=== PATIENT | female | born 1985 | race Caucasian/White ===

== ENCOUNTER 2019-09-28 09:42 | Emergency (ER) | payer SELFPAY ==
--- NOTE | 2019-09-28 10:21 | ED.PDOC ---
History of Present Illness - General Chief Complaint: Fever Stated Complaint: fever, sore throat Time Seen by Provider: 09/28/19 09:54 Source: patient, RN notes reviewed, Vital Signs reviewed, EMS notes reviewed Exam Limitations: no limitations - History of Present Illness Initial Comments: This is a 34-year-old female with no significant past medical history presenting to the emergency department for 2 days of fever, nasal congestion, sore throat. She also reports mild cough that she states is related to nasal drainage. She denies any shortness of breath, vomiting, diarrhea. 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 She states she was running a fever up to 103 today while at work and was sent home from work. She took ibuprofen just prior to arrival.Patient states she gets similar illnesses yearly around this time for the past several years Allergies/Adverse Reactions: Allergies Phenytoin [From Dilantin] Allergy (Verified 09/28/19 11:37) Home Medications: Ambulatory Orders Benzocaine (Mouth-Throat) [Chloraseptic Warming Sore] 15 mg SL Q4H PRN #30 hallie 09/28/19 Fluticasone Prop 0.05% Nasal [Flonase Nasal [place]] 1 spray BNAS BID #1 bottle 09/28/19 Ibuprofen [Motrin] 600 mg PO Q6H PRN #20 tab 09/28/19 Review of Systems - Review of Systems Constitutional: States: chills, fever EENTM: States: ear pain, nose congestion, throat pain. Denies: throat swelling, mouth pain, mouth swelling Respiratory: States: cough. Denies: short of breath, wheezing Cardiology: Denies: edema, syncope Gastrointestinal/Abdominal: Denies: abdominal pain, diarrhea, nausea, vomiting Genitourinary: Denies: dysuria, hematuria Musculoskeletal: Denies: joint pain, muscle pain Skin: Denies: lesions, lumps, rash Neurological: Denies: headache, paresthesia Past Medical History (General) - Patient Medical History Hx Asthma: Yes Hx Hypertension: Yes Hx Diabetes: Yes - diet controlled Surgical History: no surgical history - Vaccination History Hx Tetanus, Diphtheria Vaccination: Yes Hx Influenza Vaccination: Yes Hx Pneumococcal Vaccination: No - Social History Hx Alcohol Use: Yes - Activities of Daily Living Hospice Agency (if applicable):: None - Female History Patient : No Family Medical History - Family History Mother Family History: No Known Physical Exam - Physical Exam General Appearance: Alert, Comfortable, No apparent distress, Obese Ears, Nose, Throat: hearing grossly normal, normal pharynx, other - Mild nasal congestion, no pharyngeal erythema or exudate. No peritonsillar abscess. TMs are normal bilaterally. Neck: non-tender, full range of motion, supple Respiratory: lungs clear, normal breath sounds, no respiratory distress, no accessory muscle use Cardiovascular/Chest: normal peripheral pulses, regular rate, rhythm, no edema, no gallop, no JVD Gastrointestinal/Abdominal: non tender, soft Back Exam: normal inspection, no CVA tenderness, no vertebral tenderness Extremity: non-tender, normal inspection Neurologic: no motor/sensory deficits, alert, normal mood/affect, oriented x 3 Skin Exam: normal color, warm/dry Progress - Results/Orders Results/Orders: EXAM DESCRIPTION: Chest,1 View CLINICAL HISTORY: fever, cough COMPARISON: None. IMPRESSION: Single AP portable upright view of the chest shows mild enlargement of the cardiac silhouette without pulmonary vascular congestion.. Lungs are normally aerated and clear. No obvious pleural effusion or pneumothorax is seen. Electronically signed by: Bennett Villafana MD 09/28/2019 10:39 AM CDT 09/28/19 10:04 RESPIRATORY PANEL 2 Negative for influenza, COVID 2, And parainfluenza Laboratory Results - last 24 hr 09/28/19 10:04 Group A Strep Rapid Positive H Departure - Departure Clinical Impression: Fever in adult, Strep throat, Exposure to COVID-19 virus Disposition: Discharge to Home or Self Care Condition: Good Departure Forms: ED Discharge - Pt. Copy, ED Discharge - Work Release, Patient Portal Self Enrollment Instructions: Strep Throat (DC), Coronavirus Disease 2019 (COVID-19) Referrals: Kristina Metzger NP [Primary Care Provider] - 1-5 Days Prescriptions: Benzocaine (Mouth-Throat) [Chloraseptic [place]arming Sore] 15 mg SL Q4H PRN #30 hallie PRN Reason: Throat Pain Fluticasone Prop 0.05% Nasal [Flonase Nasal [place]] 1 spray BNAS BID #1 bottle Ibuprofen [Motrin] 600 mg PO Q6H PRN #20 tab PRN Reason: Moderate To Severe Pain Home Medications: Ambulatory Orders Benzocaine (Mouth-Throat) [Chloraseptic [place] Sore] 15 mg SL Q4H PRN #30 hallie 09/28/19 Fluticasone Prop 0.05% Nasal [Flonase Nasal [place]] 1 spray BNAS BID #1 bottle 09/28/19 Ibuprofen [Motrin] 600 mg PO Q6H PRN #20 tab 09/28/19
--- NOTE | 2019-09-28 10:40 | RAD ---
EXAM DESCRIPTION: Chest,1 View CLINICAL HISTORY: fever, cough COMPARISON: None. IMPRESSION: Single AP portable upright view of the chest shows mild enlargement of the cardiac silhouette without pulmonary vascular congestion.. Lungs are normally aerated and clear. No obvious pleural effusion or pneumothorax is seen. Electronically signed by: Bennett Villafana MD 09/28/2019 10:39 AM CDT
[2019-09-28] MEDS ORDERED: PENICILLIN BENZATHINE 1.2 MU 1.2 MU/2 ML SYG IM ONE (10:53)
[2019-09-28] MEDS ORDERED: DEXAMETHASONE INJ 10 MG/ML VIAL ONE (11:07)
[2019-09-28 11:40] VITALS: TEMP 97.5; O2SAT 94
[2019-09-28 11:42] VITALS: BP 152/113
[2019-09-29] MEDS ORDERED: DEXAMETHASONE INJ 10 MG/ML VIAL PO ONE (10:54)
== END 2019-09-28 11:30 | disposition home or self-care (01) ==
LOC: ER 09:42
DX: J02.0 Streptococcal pharyngitis (principal); E11.9 Type 2 diabetes mellitus without complications; I10 Essential (primary) hypertension; J45.909 Unspecified asthma, uncomplicated; Z20.828 Contact with and (suspected) exposure to other viral communicable diseases; Z88.8 Allergy status to other drugs, medicaments and biological substances
CPT/HCPCS: 71045; 87635; 87880; J0561; J1100